=== PATIENT | female | born 1990 | race Caucasian/White ===

== ENCOUNTER 2018-05-14 07:51 | Inpatient (IN) | payer BC ==
[2018-05-14] MEDS ORDERED: Lidocaine 1% 50 ML MDV INJECT PRN (08:08)
[2018-05-14] MEDS ORDERED: Nalbuphine 20 MG/ML 1 ML Syringe IVPUSH PRN (08:08)
[2018-05-14] MEDS ORDERED: Sodium Chloride 0.9% 10 ML Syringe FLUSH PRN (08:08)
[2018-05-14] MEDS ORDERED: Oxytocin/Lactated Ringers 10 UNIT/1,000 ML BAG IV SCH (08:15)
[2018-05-14] MEDS: Lactated Ringers 1,000 ML IV SCH ×3 (08:40→10:10)
[2018-05-14] MEDS ORDERED: fentaNYL 100 MCG/2 ML SDV EPIDUR PRN (08:59)
[2018-05-14] MEDS ORDERED: Ondansetron 4 MG/2 ML SDV IVPUSH PRN (08:59)
[2018-05-14] MEDS ORDERED: ePHEDrine 50 MG/ML SDV IVPUSH PRN (08:59)
[2018-05-14] MEDS ORDERED: diphenhydrAMINE 50 MG/ML SDV IVPUSH PRN (08:59)
[2018-05-14] MEDS ORDERED: Phenylephrine 1 MG in Sodium Chloride 0.9% 10 ML IV SCH (09:00)
[2018-05-14] MEDS ORDERED: fentaNYL/Bupivacaine-NS 2 MCG/ML-0.125%/PF 100 ML Bag EP SCH (09:00)
--- NOTE | 2018-05-14 09:01 | PCM.PREANE ---
Preanesthetic Assessment - Anesthesia/Transfusion/Family Hx Anesthesia History: Prior Anesthesia Without Reaction Family History of Anesthesia Reaction: No Transfusion History: No Prior Transfusion(s) Intubation History: Unknown - Review of Systems General: No Symptoms (cold with ear congestion and runny nose) Pulmonary: No Symptoms Cardiovascular: No Symptoms Gastrointestinal: No Symptoms (GERD), Diarrhea, Nausea, Vomiting Neurological: No Symptoms Other: Reports: None - Physical Assessment NPO Status Date: 05/13/18 NPO Status Time: 21:00 Pulse: 88 O2 Sat by Pulse Oximetry: 98 Respiratory Rate: 16 Blood Pressure: 115/82 Temperature: 36.9 C Vital Signs: Last Vital Signs Temp 36.9 C 05/14/18 08:08 Pulse 88 05/14/18 08:08 Resp 16 05/14/18 08:08 BP 115/82 05/14/18 08:08 Pulse Ox 98 05/14/18 08:08 Height: 1.7 m Weight: 79.832 kg ASA Class: 2 Mental Status: Alert & Oriented x3 Airway Class: Mallampati = 2 Dentition: Reports: Normal Dentition, Caries Thyro-Mental Finger Breadths: 3 Mouth Opening Finger Breadths: 3 ROM/Head Extension: Full Lungs: Clear to Auscultation, Normal Respiratory Effort Cardiovascular: Regular Rate, Regular Rhythm, No Murmurs - Lab Values: Laboratory Last Values WBC 11.44 K/mm3 (3.98-10.04) H 05/14/18 08:24 RBC 4.20 M/mm3 (3.98-5.22) 05/14/18 08:24 Hgb 13.6 gm/L (11.2-15.7) 05/14/18 08:24 Hct 41.5 % (34.1-44.9) 05/14/18 08:24 MCV 98.8 fl (79.4-94.8) H 05/14/18 08:24 MCH 32.4 pg (25.6-32.2) H 05/14/18 08:24 MCHC 32.8 g/dl (32.2-35.5) 05/14/18 08:24 RDW Std Deviation 44.9 fL (36.4-46.3) 05/14/18 08:24 Plt Count 161 K/mm3 (182-369) L 05/14/18 08:24 MPV 11.7 fl (9.4-12.3) 05/14/18 08:24 Neut % (Auto) 81.5 % (34.0-71.1) H 05/14/18 08:24 Lymph % (Auto) 10.7 % (19.3-51.7) L 05/14/18 08:24 [place] % (Auto) 7.1 % (4.7-12.5) 05/14/18 08:24 Eos % (Auto) 0.2 (0.7-5.8) L 05/14/18 08:24 Baso % (Auto) 0.1 % (0.1-1.2) 05/14/18 08:24 Neut # (Auto) 9.33 K/mm3 (1.56-6.13) H 05/14/18 08:24 Lymph # (Auto) 1.22 K/mm3 (1.18-3.74) 05/14/18 08:24 [place] # (Auto) 0.81 K/mm3 (0.24-0.36) H 05/14/18 08:24 Eos # (Auto) 0.02 K/mm3 (0.04-0.36) L 05/14/18 08:24 Baso # (Auto) 0.01 K/mm3 (0.01-0.08) 05/14/18 08:24 Above labs reviewed and noted and within acceptable ranges to proceed with epidural if desired. - Allergies Allergies/Adverse Reactions: Allergies Allergy/AdvReac Type Severity Reaction Status Date / Time Sulfa (Sulfonamide Allergy Rash Verified 05/14/18 08:42 Antibiotics) - Anesthesia Plan Pre-Op Medication Ordered: None - Acknowledgements Anesthesia Type Planned: Epidural Pt an Appropriate Candidate for the Planned Anesthesia: Yes Alternatives and Risks of Anesthesia Discussed w Pt/Guardian: Yes Pt/Guardian Understands and Agrees with Anesthesia Plan: Yes PreAnesthesia Questionnaire [employer]GER History: Reports: - Past Surgical History GI Surgical History: Reports: Appendectomy - HOME MEDS Home Medications: Home Meds PNV95/Ferrous Fumarate/FA [ Tablet] 1 tab PO DAILY 05/14/18 [History] - CURRENT (IN HOUSE) MEDS Current Meds: Current Medications Lactated Ringer's (Ringers, Lactated) 1,000 mls @ 100 mls/hr IV ASDIRECTED JANE Last Admin: 05/14/18 08:40 Dose: 500 mls/hr Oxytocin/Lactated Ringer's (Pitocin In Lr 10 Units/1,000 Ml) 10 unit in 1,000 mls @ 500 mls/hr IV .CONTINUOUS JANE Lidocaine HCl (Xylocaine 1%) 50 ml INJECT ONETIME PRN PRN Reason: Breakthrough Pain Nalbuphine HCl (Nubain) 10 mg IVPUSH Q2H PRN PRN Reason: pain Sodium Chloride (Saline Flush) 10 ml FLUSH ASDIRECTED PRN PRN Reason: Keep Vein Open
--- NOTE | 2018-05-14 10:34 | PCM.LDHP ---
L&D History of Present Illness - General Date of Service: 05/14/18 Admit Problem/Dx: Patient Status Order with Admit Dx/Problem 05/14/18 08:31 Admission Status [Patient Status] [ADT] Routine Admission Diagnosis/Problem Admission Diagnosis/Problem 05/14/18 10:25 Natacha is a 27-year-old 2 para 1002 (twins) presently at 38 weeks and 4 days with an ASHLEY of 05/24/2018 admitted in active labor with advanced cervical dilation. Source of Information: Patient History Limitations: Reports: No Limitations - History of Present Illness Introduction:: Natacha is a 27-year-old 2 para 1002 white female was admitted in active labor with advanced cervical dilation. On my evaluation she is 6 cm, 100% effaced, -2 station, anterior position, bag juan intact, very soft cervix, cephalic presentation and red every 3-4 minutes. She is an epidural placed and is comfortable. She is group B strep negative. ALIGNER/ course: Patient's last menstrual period was 08/17/2017 (exact date) giving an ASHLEY of 05/24/2018. This is supported by ultrasound done on 2017 and again on 01/03/2018. Her course started at 7 weeks and 5 days and continued with regular visits throughout the care. Her weight gain was from 143 pounds to 177 pounds for a 34 pound weight gain. Fundal height growth was appropriate. Her vital signs are stable throughout the course. labs: Blood is O+ with a negative and by screen. First hemoglobin was 12.7 g/dL. Platelets were 195,000. She is rubella immune. RPR and hepatitis B surface antigen assays were negative. GC and Chlamydia were both negative. Second trimester labs showed a hemoglobin of 12.6 g/dL and platelets at 176,000. One-hour GTT was normal at 84 mg/dL. Antibody screen was negative. Group B strep screen was negative. Allergies none Medications: 1. Tylenol when necessary 2. Cyclobenzaprine 5 mg tablets one to 2 tabs 3 times a day when necessary for muscle spasm 3. vitamins 1 daily 4. Zofran 8 mg first tablet every 8 hours when necessary for nausea 5. Doxylamine when necessary for sleep and nausea. Past medical history: 1. Vaginal delivery of first twin with her last on 05/27/2015. Past surgical history: 1. Primary to delivery a malposition second twin with her first on 05/27/2015 2. Appendectomy 3. Tonsillectomy. Family history: Mother with hypothyroidism. Mother with miscarriage. Paternal grandfather with hypertension. Maternal grandfather with type 2 diabetes. Also hypothyroidism, maternal grandfather with cirrhosis. Paternal grandmother with heart attack. Paternal grandmother with thyroid disorder. Had it removed. Paternal grandfather with lung cancer. Father with muscular dystrophy. No anesthesia, bleeding, blood clotting problems noted in the family. Social history. Patient is . She does not use any significant most alcohol, drugs or tobacco. is Quinton Sterling. They live in [place], [place]. Patient works at [employer]. Review of systems: In general patient has no significant complaints. She is noticing contractions. Baby has been active. Skin: Negative Lungs: No infectious symptoms or shortness of breath Cardiovascular: No chest pain or exercise intolerance Breasts: Changes associated with GI: Negative : Negative Musculoskeletal: Negative Neurological: Negative In general the patient is well-developed, well-nourished, pleasant female of stated age in no acute distress. She is received her epidural at the time of my initial exam. Skin is warm dry without lesions. HEENT, neck and back within normal limits. Lungs are clear with good breath sounds in all lung story. Cardiovascular exam shows regular and rhythm without murmurs. Abdomen is gravid with fundal height consistent with term . Baby in vertex presentation by Oswald maneuvers and cervical exam. Cervix as described above. Extremities and neurological exam are grossly within normal limits. Pain Score: 10 - Related Data Allergies/Adverse Reactions: Allergies Allergy/AdvReac Type Severity Reaction Status Date / Time Sulfa (Sulfonamide Allergy Rash Verified 05/14/18 08:42 Antibiotics) Home Medications: Home Meds PNV95/Ferrous Fumarate/FA [ Tablet] 1 tab PO DAILY 05/14/18 [History] Past Medical History ALIGNER History: Reports: - Past Surgical History GI Surgical History: Reports: Appendectomy Social & Family History - Caffeine Use Caffeine Use: Reports: None H&P Review of Systems - Review of Systems: Review Of Systems: See Below L&D Exam - Exam Exam: See Below - Vital Signs Vital Signs: Last Vital Signs Temp 36.9 C 05/14/18 09:13 Pulse 88 05/14/18 09:13 Resp 16 05/14/18 09:13 BP 115/82 05/14/18 09:13 Pulse Ox 98 05/14/18 09:13 Weight: 79.832 kg - Patient Data Lab Results Last 24 hrs: Laboratory Results - last 24 hr 05/14/18 05/14/18 Range/Units 08:24 08:24 WBC 11.44 H (3.98-10.04) K/mm3 RBC 4.20 (3.98-5.22) M/mm3 Hgb 13.6 (11.2-15.7) gm/L Hct 41.5 (34.1-44.9) % MCV 98.8 H (79.4-94.8) fl MCH 32.4 H (25.6-32.2) pg MCHC 32.8 (32.2-35.5) g/dl RDW Std Deviation 44.9 (36.4-46.3) fL Plt Count 161 L (182-369) K/mm3 MPV 11.7 (9.4-12.3) fl Neut % (Auto) 81.5 H (34.0-71.1) % Lymph % (Auto) 10.7 L (19.3-51.7) % [place] % (Auto) 7.1 (4.7-12.5) % Eos % (Auto) 0.2 L (0.7-5.8) Baso % (Auto) 0.1 (0.1-1.2) % Neut # (Auto) 9.33 H (1.56-6.13) K/mm3 Lymph # (Auto) 1.22 (1.18-3.74) K/mm3 [place] # (Auto) 0.81 H (0.24-0.36) K/mm3 Eos # (Auto) 0.02 L (0.04-0.36) K/mm3 Baso # (Auto) 0.01 (0.01-0.08) K/mm3 Blood Type O POSITIVE Gel Antibody Screen Negative Result Diagrams: 05/14/18 08:24 Problem List Initiated/Reviewed/Updated: Yes Orders Last 24hrs: Active Orders 24 hr Category Date Time Status Admission Status [Patient Status] [ADT] Routine ADT 05/14/18 08:31 Active Activity as Tolerated [RC] PFP Care 05/14/18 08:08 Active Communication Order [RC] ASDIRECTED Care 05/14/18 08:08 Active Heart Tones [RC] ASDIRECTED Care 05/14/18 08:09 Active Non Stress Test [RC] PER UNIT ROUTINE Care 05/14/18 08:08 Active Notify Provider [RC] ASDIRECTED Care 05/14/18 08:59 Active Notify Provider [RC] PFP Care 05/14/18 08:08 Active Notify Provider [RC] PRN Care 05/14/18 08:08 Active Oxygen Therapy [RC] ASDIRECTED Care 05/14/18 08:59 Active Peripheral IV Care [RC] . DIRECTED Care 05/14/18 08:09 Active Pulse Oximetry [RC] ASDIRECTED Care 05/14/18 08:59 Active Vital Signs [RC] PER UNIT ROUTINE Care 05/14/18 08:08 Active Regular Diet [DIET] Diet 05/14/18 Breakfast Active PATIENT RETYPE [BBK] Routine Lab 05/14/18 09:43 Ordered RAPID PLASMA REAGIN,RPR [CHEM] Routine Lab 05/14/18 08:24 Received Lactated Ringers [Ringers, Lactated] 1,000 ml Med 05/14/18 08:15 Active IV ASDIRECTED Lidocaine 1% [Xylocaine 1%] Med 05/14/18 08:08 Active 50 ml INJECT ONETIME PRN Nalbuphine [Nubain] Med 05/14/18 08:08 Active 10 mg IVPUSH Q2H PRN Ondansetron [Zofran] Med 05/14/18 08:59 Active 4 mg IVPUSH ONETIME PRN Oxytocin/Lactated Ringers [Pitocin in LR 10 Units/1,000 Med 05/14/18 08:15 Active ML] 10 unit in 1,000 ml IV .CONTINUOUS Phenylephrine [Chris-Synephrine] 1 mg Med 05/14/18 09:00 Active Sodium Chloride 0.9% [Normal Saline] 10 ml IV TITRATE Sodium Chloride 0.9% [Saline Flush] Med 05/14/18 08:08 Active 10 ml FLUSH ASDIRECTED PRN diphenhydrAMINE [Benadryl] Med 05/14/18 08:59 Active 25 mg IVPUSH Q6H PRN ePHEDrine [ePHEDrine sulfate] Med 05/14/18 08:59 Active 5 mg IVPUSH ASDIRECTED PRN fentaNYL [Sublimaze] Med 05/14/18 08:59 Active 100 mcg EPIDUR Q3H PRN fentaNYL/Bupivacaine/NS/PF [panamQLB-Qwyjf-VN 2 MCG/ML- Med 05/14/18 09:00 Active 0.125%] 100 ml EP ASDIRECTED Electronic Heart Tones Ext w TOCO [WOMSER] Oth 05/14/18 08:08 Ordered Routine Electronic Heart Tones Internal [WOMSER] Per Unit Oth 05/14/18 08:08 Ordered Routine Peripheral IV Insertion Adult [OM.PC] Routine Oth 05/14/18 08:08 Ordered Resuscitation Status Routine Resus Stat 05/14/18 08:08 Ordered Medication Orders Diphenhydramine HCl (Benadryl) 25 mg IVPUSH Q6H PRN PRN Reason: pruritis Ephedrine Sulfate (Ephedrine Sulfate) 5 mg IVPUSH ASDIRECTED PRN PRN Reason: Hypotension Fentanyl (Sublimaze) 100 mcg EPIDUR Q3H PRN PRN Reason: Pain Last Admin: 05/14/18 09:15 Dose: 100 mcg Fentanyl/Bupivacaine HCl (Qnbeozif-Nenkk-Mb 2 Mcg/Ml-0.125%) 100 ml EP ASDIRECTED JANE Last Admin: 05/14/18 09:14 Dose: 100 ml Lactated Ringer's (Ringers, Lactated) 1,000 mls @ 100 mls/hr IV ASDIRECTED JANE Last Admin: 05/14/18 10:10 Dose: 500 mls/hr Infusion: 05/14/18 10:10 Dose: 500 mls/hr Admin: 05/14/18 09:11 Dose: 500 mls/hr Infusion: 05/14/18 09:11 Dose: 500 mls/hr Admin: 05/14/18 08:40 Dose: 500 mls/hr Oxytocin/Lactated Ringer's (Pitocin In Lr 10 Units/1,000 Ml) 10 unit in 1,000 mls @ 500 mls/hr IV .CONTINUOUS JANE Phenylephrine HCl 1 mg/ Sodium (Chloride) 10.1 mls @ 1 mls/sec IV TITRATE JANE; Protocol Lidocaine HCl (Xylocaine 1%) 50 ml INJECT ONETIME PRN PRN Reason: Breakthrough Pain Nalbuphine HCl (Nubain) 10 mg IVPUSH Q2H PRN PRN Reason: pain Ondansetron HCl (Zofran) 4 mg IVPUSH ONETIME PRN PRN Reason: Nausea/Vomiting Sodium Chloride (Saline Flush) 10 ml FLUSH ASDIRECTED PRN PRN Reason: Keep Vein Open Assessment/Plan Comment:: 1. 38-4/7 week intrauterine , active labor with advanced cervical dilation. 2. Epidural for pain control 3. Group B negative 4. RPR is nonreactive 5. Rubella titer shows immunity 6. Patient plans to breast-feed Plan: 1. Anticipate normal spontaneous vaginal delivery 2. Support breast-feeding decision 3. Routine labor care
--- NOTE | 2018-05-14 13:53 | PCM.SN ---
- Free Text/Narrative Note: Delivery note: Tammy is a 27-year-old 2 now para 2003 white female was admitted at 38-3 /7 weeks gestational age with an ASHLEY of 05/24/2018 in active labor with advanced cervical dilation. She had a labor and epidural for analgesia. She quickly went on to complete cervical dilation. She had an epidural for labor and analgesia. She is group B strep negative. She had spontaneous rupture membranes shortly before she started pushing. At 1327 hrs. on 05/14/2018 Tammy delivered a viable, [place], female infants Apgars 8 and 9, a weight of__grams (__pounds,__ounces ) and a length of__inches. She delivered in a right occiput anterior position. Nuchal cord was presentwas loose and was reduced over the baby's head. Nose and mouth were bulb suctioned and baby was placed on mom's abdomen. The umbilical cord was allowed to pulsate times approximate 1 minute then was clamped 2 and was cut by the baby's father Quinton. There were 3 vessels in the umbilical cord. Pitocin was started IV to facilitate increase in uterine tone and decreased likelihood of bleeding. Patient is noted to have a small second-degree laceration. This is repaired in a routine fashion using 3-0 Monocryl suture. Patient tolerated this well, using epidural as anesthesia. The placenta delivered at 1331 hrs. in a [facility] presentation, appeared intact and complete and was discarded per patient desire. Estimated blood loss was 200 mL. Patient plans to breast-feed. Condition: Good
[2018-05-14] MEDS ORDERED: Acetaminophen 325 MG Tab PO PRN (14:27)
[2018-05-14] MEDS ORDERED: Docusate Sodium 100 MG Cap PO PRN (14:27)
[2018-05-14] MEDS ORDERED: Benzocaine/Menthol 20%-0.5% Spray 56 GM Canister TOP PRN (14:27)
[2018-05-14] MEDS ORDERED: Witch Hazel Medicated Pads 100/Jar TOP PRN (14:27)
[2018-05-14] MEDS ORDERED: Lanolin 100% Cream 7 GM Tube TOP PRN (14:27)
[2018-05-14] MEDS: Ibuprofen 600 MG Tab PO PRN ×2 (16:48→20:38)
[2018-05-14] MEDS ORDERED: Bupivacaine 0.25% 10 ML SDV ONE (22:00)
[2018-05-14] MEDS ORDERED: Lidocaine 1.5% with EPINEPHrine 1:200,000 5 ML Amp ONE (22:00)
[2018-05-15] MEDS: Ibuprofen 600 MG Tab PO PRN ×3 (02:42→12:23)
--- NOTE | 2018-05-15 08:29 | PCM48HPAN ---
Post Anesthesia Note - EVALUATION WITHIN 48HRS OF ANESTHETIC Vital Signs in Normal Range: Yes Patient Participated in Evaluation: Yes Respiratory Function Stable: Yes Airway Patent: Yes Cardiovascular Function Stable: Yes Hydration Status Stable: Yes Pain Control Satisfactory: Yes Nausea and Vomiting Control Satisfactory: Yes Mental Status Recovered: Yes - COMMENTS/OBSERVATIONS Free Text/Narrative:: Patient is having some back pain at the insertion site but that is her only complaint. Educated that back pain usually resolves within a few days to a week but in rare instances, it can persist up to 2 months.
[2018-05-15] MEDS ORDERED: Prenatal Multivitamin with Calcium/Folic Acid/Iron Tab PO SCH (09:00)
--- NOTE | 2018-05-15 09:05 | PCM.DCSUM1 ---
Discharge Summary - Hospital Course Free Text/Narrative:: 05/15/18 09:01: Weight of the baby was 3260 g (7 lbs. 3 oz.) Original Note: - Free Text/Narrative Note: Delivery note: Tammy is a 27-year-old 2 now para 2003 white female was admitted at 38-3 /7 weeks gestational age with an ASHLEY of 05/24/2018 in active labor with advanced cervical dilation. She had a labor and epidural for analgesia. She quickly went on to complete cervical dilation. She had an epidural for labor and analgesia. She is group B strep negative. She had spontaneous rupture membranes shortly before she started pushing. At 1327 hrs. on 05/14/2018 Tammy delivered a viable, [place], female infants Apgars 8 and 9, a weight of 3260 grams (7 pounds, 3 ounces). She delivered in a right occiput anterior position. Nuchal cord was presentwas loose and was reduced over the baby's head. Nose and mouth were bulb suctioned and baby was placed on mom's abdomen. The umbilical cord was allowed to pulsate times approximate 1 minute then was clamped 2 and was cut by the baby's father Quinton. There were 3 vessels in the umbilical cord. Pitocin was started IV to facilitate increase in uterine tone and decreased likelihood of bleeding. Patient is noted to have a small second-degree laceration. This is repaired in a routine fashion using 3-0 Monocryl suture. Patient tolerated this well, using epidural as anesthesia. The placenta delivered at 1331 hrs. in a [facility] presentation, appeared intact and complete and was discarded per patient desire. Estimated blood loss was 200 mL. Patient plans to breast-feed. Postterm patient is done well. She is breast-feeding without problems, ambulating well and has minimal lochia. She is voiding without concerns. She is desiring discharge home. Condition: Good - Discharge Data Discharge Date: 05/15/18 Discharge Disposition: Home, Self-Care 01 Condition: Good - Patient Instructions Diet: Regular Diet as Tolerated (Nursing diet with increased calories and calcium as recommended) Activity: As Tolerated (No intercourse or tampons until bleeding resolves) Driving: May Drive Today Showering/Bathing: May Shower (May take a bath) Notify Provider of: Fever, Increased Pain, Swelling and Redness - Discharge Plan Home Medications: Home Meds PNV95/Ferrous Fumarate/FA [ Tablet] 1 tab PO DAILY 05/14/18 [History] Acetaminophen [Tylenol] 650 mg PO Q4H PRN tablet 05/15/18 [Rx] Ibuprofen [Motrin] 600 mg PO Q4H PRN tablet 05/15/18 [Rx] Referrals: Tonia Ruiz MD [Primary Care Provider] - (Return to clinicDr. [facility] weeks.) - Discharge Summary/Plan Comment DC Time >30 min.: No Discharge Summary/Plan Comment: Discharge instructions: 1. Discharge home 2. Diet, activity and follow-up discussed with patient. Recommend nursing diet with increased calories and calcium. 3. Precautions given concern increased pain, bleeding, temperature, signs/ symptoms of DVT/PE. 4. Medications per home medication was printed, discussed with and given to the patient. 5. Return to clinic-Dr. Ruiz at [facility] in 4 weeks. Diagnosis: Term -delivered Condition: Good - Patient Data Vitals - Most Recent: Last Vital Signs Temp 37.2 C 05/15/18 02:00 Pulse 77 05/15/18 02:00 Resp 16 05/15/18 02:00 BP 111/55 L 05/15/18 02:00 Pulse Ox 97 05/15/18 02:00 Weight - Most Recent: 79.832 kg I&O - Last 24 hours: Intake & Output 05/14/18 05/15/18 05/15/18 22:59 06:59 14:59 Intake Total 60 Balance 60 Lab Results - Last 24 hrs: Laboratory Results - last 24 hr 05/14/18 Range/Units 08:24 Blood Type O POSITIVE Gel Antibody Screen Negative Med Orders - Current: Current Medications Acetaminophen (Tylenol) 650 mg PO Q4H PRN PRN Reason: mild pain or fever Benzocaine/Menthol (Dermoplast Pain Relief [place]) 0 gm TOP ASDIRECTED PRN PRN Reason: Perineal Comfort Measure Last Admin: 05/14/18 16:49 Dose: 1 can Docusate Sodium (Colace) 100 mg PO BID PRN PRN Reason: Constipation Emollient Ointment (Lansinoh Hpa) 0 gm TOP ASDIRECTED PRN PRN Reason: Sore Nipples Ibuprofen (Motrin) 600 mg PO Q4H PRN PRN Reason: Mild pain or fever Last Admin: 05/15/18 06:24 Dose: 600 mg Prenat Multivit/Cascade/Iron/Folic Ac ( Plus Iron) 1 each PO DAILY [facility] Cale Chow (Tucks) 1 pad TOP ASDIRECTED PRN PRN Reason: Hemorrhoid pain Last Admin: 05/14/18 16:49 Dose: 1 tub Discontinued Medications Diphenhydramine HCl (Benadryl) 25 mg IVPUSH Q6H PRN PRN Reason: pruritis Ephedrine Sulfate (Ephedrine Sulfate) 5 mg IVPUSH ASDIRECTED PRN PRN Reason: Hypotension Fentanyl (Sublimaze) 100 mcg EPIDUR Q3H PRN PRN Reason: Pain Last Admin: 05/14/18 09:15 Dose: 100 mcg Fentanyl/Bupivacaine HCl (Tvihpucx-Fiwvt-Ag 2 Mcg/Ml-0.125%) 100 ml EP ASDIRECTED [facility] Last Admin: 05/14/18 09:14 Dose: 100 ml Lactated Ringer's (Ringers, Lactated) 1,000 mls @ 100 mls/hr IV ASDIRECTED [facility] Last Admin: 05/14/18 10:10 Dose: 500 mls/hr Oxytocin/Lactated Ringer's (Pitocin In Lr 10 Units/1,000 Ml) 10 unit in 1,000 mls @ 500 mls/hr IV .CONTINUOUS JANE Phenylephrine HCl 1 mg/ Sodium (Chloride) 10.1 mls @ 1 mls/sec IV TITRATE JANE; Protocol Lidocaine HCl (Xylocaine 1%) 50 ml INJECT ONETIME PRN PRN Reason: Breakthrough Pain Nalbuphine HCl (Nubain) 10 mg IVPUSH Q2H PRN PRN Reason: pain Ondansetron HCl (Zofran) 4 mg IVPUSH ONETIME PRN PRN Reason: Nausea/Vomiting Sodium Chloride (Saline Flush) 10 ml FLUSH ASDIRECTED PRN PRN Reason: Keep Vein Open
== END 2018-05-15 15:50 | disposition home or self-care (01) | DRG 560 ==
LOC: JD.OB 07:51 → JD.OBCHECK 07:51 → JD.OB 08:31 → UNDOADMOB 08:31 → OBSVTOIN 13:27 → JD.OB 13:28
PROVIDERS: ADMIT Obstetrics & Gynecology; ATTEND Obstetrics & Gynecology
PROC: 0KQM0ZZ Repair Perineum Muscle, Open Approach (ICD-10-PCS; principal; 2018-05-14)
PROC: 10E0XZZ Delivery of Products of Conception, External Approach (ICD-10-PCS; principal; 2018-05-14)
PROC: 00HU33Z Insertion of Infusion Device into Spinal Canal, Percutaneous Approach (ICD-10-PCS; 2018-05-14)
PROC: 3E0R3BZ Introduction of Anesthetic Agent into Spinal Canal, Percutaneous Approach (ICD-10-PCS; 2018-05-14)
DX: O34.219 Maternal care for unspecified type scar from previous cesarean delivery (principal); O69.81X0 Labor and delivery complicated by cord around neck, without compression, not applicable or unspecified; O70.1 Second degree perineal laceration during delivery; Z3A.38 38 weeks gestation of pregnancy; Z37.0 Single live birth; N85.8 Other specified noninflammatory disorders of uterus; Z88.2 Allergy status to sulfonamides
CPT/HCPCS: 36415; 51702; 59025; 59409; 85025; 86592; 86850; 86900; 86901; A9270-GY; J3010; J3490; J7120

== ENCOUNTER 2020-11-06 19:29 | Emergency (ER) | payer BC ==
[2020-11-06] MEDS ORDERED: Sodium Chloride 0.9% 1,000 ML IV ONE (19:55)
[2020-11-06] MEDS ORDERED: Ondansetron 4 MG/2 ML SDV IVPUSH ONE (19:55)
--- NOTE | 2020-11-06 20:31 | EDM.PDOC ---
ED HPI GENERAL MEDICAL PROBLEM - General Chief Complaint: Gastrointestinal Problem Stated Complaint: VOMITING/DIARRHEA Time Seen by Provider: 11/06/20 20:04 - History of Present Illness INITIAL COMMENTS - FREE TEXT/NARRATIVE: Patient arrived ED by private vehicle She is accompanied by her Onset of symptoms was 1430 today Endorses occurrence of vomiting and diarrhea, episodes of both too numerous to count Associated cramping discomfort in abdomen She does not believe she is Reports occurrence 2-3 days ago of sore throat, which resolved Since then has had chills, body aches, fatigue Denies cough or dyspnea or fever She states "the whole house" has been sick with somewhat similar symptoms Her daughter was seen today by primary care provider and diagnosed with a cold virus COVID testing was not performed - Related Data Allergies Allergy/AdvReac Type Severity Reaction Status Date / Time Sulfa (Sulfonamide Allergy Rash Verified 11/06/20 19:54 Antibiotics) Home Meds: Home Meds ondansetron HCL [Ondansetron HCl] 4 mg PO Q6H PRN #15 tablet 11/07/20 [Rx] Past Medical History - Past Health History Medical/Surgical History: Denies Medical/Surgical History HEENT History: Reports: Other (See Below) Other HEENT History: has a cold right now [employer] History: Reports: - Past Surgical History HEENT Surgical History: Reports: Tonsillectomy GI Surgical History: Reports: Appendectomy Social & Family History - Tobacco Use Tobacco Use Status *Q: Never Tobacco User - Caffeine Use Caffeine Use: Reports: None - Recreational Drug Use Recreational Drug Use: No ED ROS GENERAL - Review of Systems Review Of Systems: See Below Free Text/Narrative/Comment: Constitutional - no fever; malaise/fatigue Eyes - no eye pain; no visual disturbance ENT - no rhinorrhea; no congestion; no epistaxis; sore throat Cardiovascular - no chest pain Respiratory - no shortness of breath; no cough Gastrointestinal - abdominal pain; nausea; vomiting; diarrhea Genitourinary - no dysuria Musculoskeletal - no neck pain; no back pain; no extremity injury; myalgia Neurological - no headache; no speech disturbance; no weakness ED EXAM, GENERAL - Physical Exam Exam: See Below Free Text/Narrative:: Constitutional - awake; alert; mild general distress Head - no facial swelling or weakness Eyes - extra ocular motion intact; conjunctiva normal ENT - no nasal deformity; no epistaxis; normal phonation Neck - no swelling Respiratory - normal respiratory effort; no crackles or wheezing; no stridor Cardiovascular - regular rhythm; tachycardia; S1; S2; grade 1/6 systolic murmur GI/Abdomen - normal bowel sounds; soft; mild, generalized tenderness; no rebound; no guarding; no mass Musculoskeletal - grossly normal strength and motion; no swelling or deformity Skin - warm; dry Neurologic - normal speech; no weakness Psychiatric - normal mood and affect; memory and attention normal Course - Vital Signs Text/Narrative:: . Considered etiologies included: Vomiting, diarrhea, gastritis, gastroenteritis, viral syndrome, COVID-19, dehydration, metabolic derangement Symptoms and examination were discussed Investigations were initiated Empiric treatment was provided with IV fluid infusion and ondansetron Further treatment was subsequently provided with prochlorperazine Results were discussed, and were unremarkable Possibility for false negative COVID result was discussed She noted overall improvement but some persistence of nausea Further antiemetic therapy was declined She tolerated oral fluid intake without further emesis Symptomatic treatment was reviewed Patient was felt to be stable for outpatient follow-up Return precautions were provided Last Recorded V/S: Last Vital Signs Temp 36.9 C 11/06/20 19:52 Pulse 109 H 11/06/20 19:52 Resp 16 11/06/20 19:52 BP 122/83 11/06/20 19:52 Pulse Ox 100 11/06/20 19:52 - Orders/Labs/Meds Labs: Laboratory Tests 11/06/20 11/06/20 11/06/20 Range/Units 19:50 19:50 19:50 WBC 10.24 H (3.98-10.04) K/mm3 RBC 4.70 (3.98-5.22) M/mm3 Hgb 14.8 (11.2-15.7) gm/dl Hct 45.0 H (34.1-44.9) % MCV 95.7 H D (79.4-94.8) fl MCH 31.5 (25.6-32.2) pg MCHC 32.9 (32.2-35.5) g/dl RDW Std Deviation 44.6 (36.4-46.3) fL Plt Count 176 L (182-369) K/mm3 MPV 10.7 (9.4-12.3) fl Neut % (Auto) 87.9 H (34.0-71.1) % Lymph % (Auto) 2.2 L (19.3-51.7) % [place] % (Auto) 9.4 (4.7-12.5) % Eos % (Auto) 0.3 L (0.7-5.8) Baso % (Auto) 0.1 (0.1-1.2) % Neut # (Auto) 9.00 H (1.56-6.13) K/mm3 Lymph # (Auto) 0.23 L (1.18-3.74) K/mm3 [place] # (Auto) 0.96 H (0.24-0.36) K/mm3 Eos # (Auto) 0.03 L (0.04-0.36) K/mm3 Baso # (Auto) 0.01 (0.01-0.08) K/mm3 Sodium 142 (136-145) mEq/L Potassium 4.0 (3.5-5.1) mEq/L Chloride 105 (98-107) mEq/L Carbon Dioxide 24 (21-32) mEq/L Anion Gap 17.0 H (5-15) BUN 17 (7-18) mg/dL Creatinine 0.9 (0.55-1.02) mg/dL Est Cr Clr Drug Dosing 88.88 mL/min Estimated GFR (MDRD) > 60 (>60) mL/min BUN/Creatinine Ratio 18.9 H (14-18) Glucose 125 H (70-99) mg/dL Calcium 8.8 (8.5-10.1) mg/dL Total Bilirubin 0.9 (0.2-1.0) mg/dL AST 19 (15-37) U/L ALT 28 (14-59) U/L Alkaline Phosphatase 33 L (46-116) U/L Total Protein 8.2 (6.4-8.2) g/dl Albumin 4.6 (3.4-5.0) g/dl Globulin 3.6 gm/dL Albumin/Globulin Ratio 1.3 (1-2) HCG, Qual Negative (NEGATIVE) Urine Color (Yellow) Urine Appearance (Clear) Urine pH (5.0-8.0) Ur Specific [place] (1.005-1.030) Urine Protein (Negative) Urine Glucose (UA) (Negative) Urine Ketones (Negative) Urine Occult Blood (Negative) Urine Nitrite (Negative) Urine Bilirubin (Negative) Urine Urobilinogen (0.2-1.0) Ur Leukocyte Esterase (Negative) U Hyaline Cast (Auto) (0-5) /lpf Urine RBC (0-5) /hpf Urine WBC (0-5) /hpf Ur Squamous Epith Cells (0-5) /hpf Urine Bacteria (FEW) /hpf Urine Mucus (FEW) /hpf Influenza Type A RNA Influenza Type B RNA SARS-CoV-2 RNA ([place]) (NEGATIVE) 11/06/20 11/06/20 Range/Units 20:51 23:27 WBC (3.98-10.04) K/mm3 RBC (3.98-5.22) M/mm3 Hgb (11.2-15.7) gm/dl Hct (34.1-44.9) % MCV (79.4-94.8) fl MCH (25.6-32.2) pg MCHC (32.2-35.5) g/dl RDW Std Deviation (36.4-46.3) fL Plt Count (182-369) K/mm3 MPV (9.4-12.3) fl Neut % (Auto) (34.0-71.1) % Lymph % (Auto) (19.3-51.7) % [place] % (Auto) (4.7-12.5) % Eos % (Auto) (0.7-5.8) Baso % (Auto) (0.1-1.2) % Neut # (Auto) (1.56-6.13) K/mm3 Lymph # (Auto) (1.18-3.74) K/mm3 [place] # (Auto) (0.24-0.36) K/mm3 Eos # (Auto) (0.04-0.36) K/mm3 Baso # (Auto) (0.01-0.08) K/mm3 Sodium (136-145) mEq/L Potassium (3.5-5.1) mEq/L Chloride (98-107) mEq/L Carbon Dioxide (21-32) mEq/L Anion Gap (5-15) BUN (7-18) mg/dL Creatinine (0.55-1.02) mg/dL Est Cr Clr Drug Dosing mL/min Estimated GFR (MDRD) (>60) mL/min BUN/Creatinine Ratio (14-18) Glucose (70-99) mg/dL Calcium (8.5-10.1) mg/dL Total Bilirubin (0.2-1.0) mg/dL AST (15-37) U/L ALT (14-59) U/L Alkaline Phosphatase (46-116) U/L Total Protein (6.4-8.2) g/dl Albumin (3.4-5.0) g/dl Globulin gm/dL Albumin/Globulin Ratio (1-2) HCG, Qual (NEGATIVE) Urine Color Yellow (Yellow) Urine Appearance Slt cloudy H (Clear) Urine pH 5.5 (5.0-8.0) Ur Specific [place] > or = 1.030 (1.005-1.030) Urine Protein Trace H (Negative) Urine Glucose (UA) Negative (Negative) Urine Ketones 4+ H (Negative) Urine Occult Blood Negative (Negative) Urine Nitrite Negative (Negative) Urine Bilirubin 1+ H (Negative) Urine Urobilinogen 0.2 (0.2-1.0) Ur Leukocyte Esterase Negative (Negative) U Hyaline Cast (Auto) 0-5 (0-5) /lpf Urine RBC Not seen (0-5) /hpf Urine WBC 0-5 (0-5) /hpf Ur Squamous Epith Cells 0-5 (0-5) /hpf Urine Bacteria Rare (FEW) /hpf Urine Mucus Many H (FEW) /hpf Influenza Type A RNA Cancelled Influenza Type B RNA Cancelled SARS-CoV-2 RNA ([place]) Negative (NEGATIVE) Meds: Medications Discontinued Medications Generic Name Dose Route Start Last Admin Trade Name Freq PRN Reason Stop Dose Admin Sodium Chloride 1,000 mls @ 999 mls/hr 11/06/20 19:55 11/06/20 20:01 Normal Saline IV 11/06/20 20:55 999 mls/hr ONETIME ONE Administration Prochlorperazine Edisylate 10 52 mls @ 150 mls/hr 11/06/20 21:55 11/06/20 22:04 mg/ Sodium Chloride IV 11/06/20 22:15 150 mls/hr ONETIME ONE Administration Ondansetron HCl 4 mg 11/06/20 19:55 11/06/20 20:01 Ondansetron 4 Mg/2 Ml Sdv IVPUSH 11/06/20 19:56 4 mg ONETIME ONE Administration Ondansetron HCl 4 mg 11/07/20 00:14 11/07/20 00:20 Ondansetron 4 Mg/2 Ml Sdv IVPUSH 11/07/20 00:15 4 mg ONETIME ONE Administration Departure - Departure Time of Disposition: 00:16 Disposition: Home, Self-Care 01 Clinical Impression: Gastroenteritis, Viral syndrome - Discharge Information *PRESCRIPTION DRUG MONITORING PROGRAM REVIEWED*: No *COPY OF PRESCRIPTION DRUG MONITORING REPORT IN PATIENT [place]: Not Applicable Prescriptions: ondansetron HCL [Ondansetron HCl] 4 mg PO Q6H PRN #15 tablet PRN Reason: Nausea/Vomiting Instructions: Viral Gastroenteritis, Adult, [id number], Viral Illness, Adult Referrals: PCP,None [Primary Care Provider] - Forms: ED Department Discharge Additional Instructions: Your symptoms are consistent with a viral syndrome, which could include COVID-19 A positive COVID test can confirm the infection, however a negative result does not rule it out Consider follow-up COVID test in 24-48 hours Return if condition worsens May resume general activity and light diet as tolerated If vomiting occurs, stop oral intake for 30-60 minutes, then resume clear liquid sips, 2-3 over 10-15 minutes, and advance slowly as tolerated Continue usual medications May use ONDANSETRON as prescribed, as needed for nausea/vomiting Follow-up with primary care provider is recommended in 3-5 days Sepsis Event Note (ED) - Evaluation Sepsis Screening Result: No Definite Risk
[2020-11-06] MEDS ORDERED: Prochlorperazine 10 MG in Sodium Chloride 0.9% 50 ML IV ONE (21:55)
[2020-11-07] MEDS ORDERED: Ondansetron 4 MG/2 ML SDV IVPUSH ONE (00:14)
== END 2020-11-07 00:33 | disposition home or self-care (01) ==
LOC: JD.ED 19:29
DX: K52.9 Noninfective gastroenteritis and colitis, unspecified (principal); B34.9 Viral infection, unspecified; Z88.2 Allergy status to sulfonamides; Z20.822 Contact with and (suspected) exposure to COVID-19
CPT/HCPCS: 36415; 80053; 81001; 84703; 85025; 87635; 87804; 96365; 96375; 99284; J0780; J2405; J7030; 99283; U0002